=== PATIENT | female | born 1990 | race African-American/Black ===

== ENCOUNTER 2018-08-17 02:37 | Emergency (ER) | payer SELFPAY ==
[~2018-08-17] VITALS: Ht 167.6 cm; Wt 68.0 kg
[2018-08-17] MEDS ORDERED: ONDANSETRON HCL 4MG/2ML INJ IV STA (03:12)
[2018-08-17] MEDS ORDERED: SODIUM CHLORIDE 0.9% 1,000 ML IV ONE (03:12)
[2018-08-17] MEDS ORDERED: MORPHINE SULFATE 4 MG/ML CPJ (NOT FOR IM USE) IV STA (03:12)
[2018-08-17] MEDS ORDERED: CEFAZOLIN 1000MG PREMIX 50 ML IV ONE (03:15)
[2018-08-17] MEDS ORDERED: TETANUS, DIPHTHERIA, PERTUSSIS VAC/PF 0.5ML (>7YR OLD) IM ONE (03:15)
[2018-08-17] MEDS ORDERED: MORPHINE SULFATE 10 MG/ML CPJ IV NR (03:30)
[2018-08-17 03:51] LABS: CHLORIDE 107 mEq/L (98-107)
[2018-08-17 03:55] LABS: BASOPHILS % 1.7 % (0.0-2.0); EOSINOPHILS % 0.8 % (0.0-5.0); HEMATOCRIT. 34.1 % (36.0-48.0); HEMOGLOBIN. 11.1 g/dL (12.0-16.0); LYMPHOCYTES % 32.5 % (20.0-50.0); MEAN CORPUSCULAR HEMOGLOBIN 28.7 pg (28.0-32.0); MEAN CORPUSCULAR VOLUME 87.9 fL (81.0-99.0); MEAN PLATELET VOLUME 7.7 fl (7.4-10.4); MONOCYTES % 9.6 % (2.0-8.0); NEUTROPHILS % 55.4 % (40.0-76.0); PLATELET 277 x1000/uL (130-400); RED BLOOD CELL COUNT 3.88 mill/uL (4.2-5.4); RED CELL DISTRIBUTION WIDTH 16.1 % (11.6-14.6)
[2018-08-17 04:00] LABS: CREATINE KINASE 99 IU/L (26-192)
[2018-08-17 04:01] LABS: PARTIAL THROMBOPLASTIN TIME 25.4 sec (23.4-31.0)
[2018-08-17 04:10] LABS: HCG SCREEN NEGATIVE
[2018-08-17] MEDS ORDERED: IOHEXOL-300 100 ML BOTTLE ONE (04:37)
[2018-08-17] MEDS ORDERED: KETOROLAC 30MG/ML VIAL IV ONE (06:30)
[2018-08-17 07:00] VITALS: BP 114/86
[2018-08-17 07:17] LABS: CLARITY URINE CLOUDY (CLEAR); COLOR URINE YELLOW (YELLOW); KETONES URINE NEGATIVE (NEGATIVE); LEUKOCYTE ESTERASE URINE 1+ (NEGATIVE); NITRITE URINE NEGATIVE (NEGATIVE); OCCULT BLOOD URINE TRACE (NEGATIVE); PROTEIN URINE NEGATIVE (NEGATIVE); SPECIFIC GRAVITY URINE 1.034 (1.005-1.030); UROBILINOGEN URINE 0.2 E.U./dL (0.2-1.0)
== END 2018-08-17 07:32 | disposition home or self-care (01) ==
LOC: ER 03:36
DX: R10.9 Unspecified abdominal pain (principal); M54.2 Cervicalgia; R51 Headache; V43.62XA Car passenger injured in collision with other type car in traffic accident, initial encounter; Y93.89 Activity, other specified; Y92.410 Unspecified street and highway as the place of occurrence of the external cause; Z98.890 Other specified postprocedural states
CPT/HCPCS: 36415; 70450; 70486; 71045; 71260; 72125; 72170; 73030; 73120; 74177; 80053; 81003; 81025; 82550; 83690; 84703; 85025; 85610; 85730; 86850; 86900; 86901; 90471; 90715; 96365; 96375; 99284; J0690; J1885; J2270; J2405; J7030; Q9967

== ENCOUNTER 2018-09-15 01:30 | Emergency (ER) | payer SELFPAY ==
[~2018-09-15] VITALS: Ht 165.1 cm; Wt 64.0 kg
[2018-09-15] MEDS ORDERED: SODIUM CHLORIDE 0.9% 1,000 ML IV ONE (02:45)
[2018-09-15] MEDS ORDERED: KETOROLAC 15MG/ML VIAL IV ONE (02:45)
[2018-09-15 03:02] LABS: CHLORIDE 110 mEq/L (98-107)
[2018-09-15 03:06] LABS: EOSINOPHILS % 0.9 % (0.0-5.0); HEMATOCRIT. 31.3 % (36.0-48.0); HEMOGLOBIN. 10.3 g/dL (12.0-16.0); LYMPHOCYTES % 29.3 % (20.0-50.0); MEAN CORPUSCULAR HEMOGLOBIN 28.8 pg (28.0-32.0); MEAN PLATELET VOLUME 7.4 fl (7.4-10.4); MONOCYTES % 10.3 % (2.0-8.0); NEUTROPHILS % 58.5 % (40.0-76.0); PLATELET 255 x1000/uL (130-400); RED CELL DISTRIBUTION WIDTH 16.6 % (11.6-14.6)
[2018-09-15] MEDS ORDERED: ONDANSETRON HCL 4MG/2ML INJ IV ONE (03:15)
[2018-09-15] MEDS ORDERED: MORPHINE SULFATE 4 MG/ML CPJ (NOT FOR IM USE) IV ONE (03:15)
[2018-09-15 05:42] VITALS: BP 98/60
== END 2018-09-15 06:57 | disposition left against medical advice (07) ==
LOC: ER 01:30
DX: R10.9 Unspecified abdominal pain (principal)
CPT/HCPCS: 36415; 76770; 80048; 81025; 85025; 96374; 96375; 99284; J1885; J2270; J2405; J7030